=== PATIENT | female | born 1970 | race Caucasian/White ===

== ENCOUNTER 2025-02-05 10:05 | Outpatient (AMB) | payer OTHER, SELFPAY ==
[2025-02-05 10:11] VITALS: BMI 24.9
--- NOTE | 2025-02-05 10:11 | A.PHYSOV ---
Vital Signs 02/05/25 10:11 Height 5 ft 6 in Weight 154 lb BMI 24.9 Intake Visit Reasons: NPV Marita Ref- chronic rt shoulder & paresthesia Intake Note: Patient is a 54 year old female here for a new patient office visit. Patient has been referred for chronic right shoulder pain and paresthesia in right arm. Machine I Cutter Required: No Allergies Sulfa (Sulfonamide Antibiotics) Allergy (Unknown, Verified 02/05/25 10:12) Unknown HPI Comments Details: History of Present Illness The patient is a 54 year old individual presenting for evaluation of worsening right shoulder pain. 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 The symptoms have worsened since the summer and now include tingling that radiates down the entire right arm into the hand. The patient's job involves repetitive lifting of heavy items with the right arm and hand. There is no history of a specific traumatic injury; the condition is attributed to overuse. Pain can be severe with certain movements, causing spasms down the arm, and hand numbness is experienced at work and at night. Past medical history is significant for a frozen left shoulder, which felt different from the current symptoms and was treated with physical therapy. The patient also has ulcerative colitis, which contraindicates the use of NSAIDs like ibuprofen. The patient has tried Tylenol without relief and uses a cannabis cream for the pain. Patient reports pain level today of 7/10. I reviewed the referring provider's no prior to consultation. Pain Description - Location: The patient reports pain in the right shoulder. - Radiation: The pain is associated with tingling that radiates down the arm into the hand and pain that goes into the shoulder blade. - Quality: The sensation is described as tingling and can cause spasms. - Onset and Duration: Pain has been intermittent for years but has worsened since the summer. - Exacerbating Factors: Pain is worsened by certain shoulder or neck movements, work activities, and sitting. - Associated Symptoms: The patient reports numbness in the hand, difficulty with treatment counselor, increased clumsiness, and headaches. [facility] Social History (Updated 02/05/25 @ 10:14 by Taylor Mccloud MA) Alcohol intake: current Alcohol intake frequency: holidays/special occasions only Patient Tobacco Use Status: Never used Tobacco Review of Systems Narrative Review of Systems - Neurological: Reports tingling and numbness radiating from the right shoulder down to the hand. - Neurological: Reports headaches. - Neurological: Reports increased clumsiness lately. - Musculoskeletal: Reports arm spasms with certain movements. - Gastrointestinal: Reports a history of ulcerative colitis. - Musculoskeletal: Reports worsening right shoulder pain, present intermittently for years. Physical Exam Exam Exam: Physical Exam Cervical Spine: Examination of her cervical spine, there is no visible swelling or deformity. She is tender to the right upper trapezius. She is otherwise nontender. Full range of motion of the cervical spine with pain. Special Tests: Axial Compression test: Negative Spurlings test: Positive right Lhermitte's sign is Negative Upper Extremities: Full range of motion bilateral upper extremities. Negative impingement testing. Negative Tinel test. Equal treatment counselor strength bilaterally. Neuro: Sensation: Intact to upper extremities bilateral to light touch Strength C5 (Elbow Flexion): 5/5 on the left and 5/5 on the right. C6 (Elbow Ext): 5/5 on the left and 5/5 on the right. C7 (Elbow Ext): 5/5 on the left and 5/5 on the right. C8 (Finger Flex): 5/5 on the left and 5/5 on the right. T1 (Finger Abd/Add): 5/5 on the left and 5/5 on the right. DTR: C5 (Biceps): Left 2 Right 2 C6 (Brachioradialis): Left 2 Right 2 C7 (Triceps): Left 2 Right 2 Clark sign: Negative No pathologic clonus. No involuntary movement. . Vital Signs: BMI result Body Mass Index 24.9 Assessment & Plan Assessment & Plan (1) Cervical radiculopathy: Code(s): M54.12 - Radiculopathy, cervical region Category: Medical (2) Impingement of right shoulder: Code(s): M25.811 - Other specified joint disorders, right shoulder Category: Medical (3) Carpal tunnel syndrome, right: Code(s): G56.01 - Carpal tunnel syndrome, right upper limb Category: Medical Plan Pain Management - Analgesia: The patient has tried Tylenol without effect and uses a cannabis cream for pain. - Analgesia: Current pain can be severe with certain movements, causing spasms that go down the arm. - Analgesia: Prohibited medications include ibuprofen due to a history of ulcerative colitis. - Activities of Daily Living: The patient's work, which involves repetitive use of the right arm and hand, is impacted. - Activities of Daily Living: The patient reports difficulty gripping with the right hand. Plan Patient was informed and verbally consented to the use of an ambient scribe for clinic note documentation during this visit. 1. Cervicalgia With Radiculopathy The patient's symptoms of right arm pain, tingling, and numbness are more likely attributable to a cervical spine issue, such as a pinched nerve, rather than a primary shoulder pathology. This clinical suspicion is based on the physical exam finding that neck movements reproduce the radicular symptoms, whereas shoulder ROM is less provocative. A home exercise program for the neck will be initiated, focusing on gentle stretching and isometrics. Gabapentin 100 mg is prescribed, to be taken up to TID for neuropathic pain, with instructions to titrate as tolerated. The patient may continue Tylenol for analgesia. A follow-up is scheduled in 6 weeks to reassess and pursue an MRI of the neck, as insurance is likely to deny it without a trial of conservative therapy. Patient declined physical therapy therefore we have reviewed 5 different exercise that she will perform every other day upon follow-up if her symptoms are not markedly improved we will consider MRI of the cervical spine. 2. Right Shoulder Pain Although this is the patient's primary complaint, the physical exam is less indicative of a primary shoulder etiology. Previous X-rays showed only mild AC joint degenerative changes. Treatment will focus on the suspected cervical cause of the symptoms, and the shoulder will be re-evaluated at the 6-week follow-up appointment. 3. Ulcerative Colitis The patient's history of ulcerative colitis serves as a contraindication to the use of NSAIDs for pain management. The patient has been educated to avoid ibuprofen and similar medications. Discussion Notes I discussed with the patient that while the main complaint is right shoulder pain, my clinical suspicion is that the symptoms, particularly the tingling and numbness, are originating from a pinched nerve in the neck. I explained that this is supported by the physical exam, where neck movements reproduced the arm symptoms, while shoulder movement was less provocative. We reviewed the likely insurance requirement of a 4-6 week trial of conservative therapy before an MRI of the neck would be approved. The patient agreed to a treatment plan consisting of a home exercise program for the neck and a trial of gabapentin for nerve pain. I prescribed gabapentin 100 mg TID and advised on potential drowsiness. I provided a handout with neck exercises and instructed the patient to monitor how neck positioning affects the arm symptoms to help confirm the diagnosis. We will follow up in five weeks to reassess and will collaboratively decide on ordering an MRI for either the neck or shoulder at that time. Patient Instructions - Begin a home exercise program for your neck, focusing on gentle stretches forward, backward, and [id number]. - Avoid rotating or twisting your neck, as this may worsen your symptoms. - Take gabapentin 100 mg up to three times a day for your nerve pain. You can increase the dose if needed, but be aware that this medication can make you sleepy. - You may continue to take Tylenol (1 gram every 8 hours) for pain. - Do not take medications like ibuprofen due to your history of ulcerative colitis. - Pay attention to whether certain neck movements or positions make your arm symptoms better or worse, and be prepared to discuss this at your next visit. - Please make a follow-up appointment at the front office manager for five weeks from now. Medications: New gabapentin 100 mg PO TID 90 caps 0RF 30 days M54.12 - Radiculopathy, cervical region Coding Level of Care Code Tele New Pt Level 4 (14704) Diagnoses Cervical radiculopathy M54.12 Impingement of right shoulder M25.811 Carpal tunnel syndrome, right G56.01
--- OUTSIDE RECORDS SUMMARY | 2025-02-05 11:24 | XMS_ITS | Encounter Summary ---
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 2-4 times a month 05/30/2020 How many drinks containing a lcohol do you have on a typical day when you are drinking? Not asked How often do you have six or more drinks on one occasion? Not asked Sex Assigned at Date Recorded Female 09/03/2021 3:43 PM E [employer] Job Start Date Occupation Industry Not on file Not on file Not on file documented as of this encounter Plan of Treatment Not on file documented as of this encounter Visit Diagnoses Not on filedocumented in this encounter Care Teams Lather Apprentice Relationship Specialty Start Date End Date Eddi Arias MD PCP - General Internal Medicine 02/22/14 09/10/21 Aziza Preito MD [address] [place] [id number] PCP - General Internal Medicine 09/11/21 03/30/22 Ronnie Jose [address] [place] [phone] PCP - General Internal Medicine 03/31/22 07/12/22 Aziza Prieto MD [address] [place] [phone] PCP - General Internal Medicine 07/13/22 Meka Yañez MD Specialist Cardiology 04/22/20 Billy Hutson PA Specialist Cardiology 04/22/20 documented as of this encounter
--- OUTSIDE RECORDS SUMMARY | 2025-02-05 11:24 | XMS_ITS | Clinical Summary ---
Author Organization [address] [place] [address] Address [address] [place] [address] Phone Care Team Providers Care Coil Finisher Name Role Phone Aziza Garber MD Primary Care Prov ider Allergies Active Allergy Reactions Criticality Noted Date Comments Sulfa (Sulfonamide Antibiotics) Rash 06/2009 Medications glucosamine-chond roit-vit C-Mn 500-400 mg capsule Take by mouth 2 times daily. Active MULTIVITAMIN ORAL 1 tab daily Active Lactobacillus acidophilus (PROBIOTIC ORAL) Take 1 capsule by mouth 1 (one) time each day. Active mesalamine (DELZICOL) 400 mg capsule (with del rel tablets) DR capsuleIndication s:Other ulcerative colitis without complication ([facility]/HCC V24, [facility]/HCC V28) Take four (4) capsules two times per day. 720 capsule 3 5 04/23/19 26 Active pantoprazole (PROTONIX) 40 mg EC tabletIndications :Gastroesophageal reflux disease, unspecified whether esophagitis present Take 1 tablet (40 mg total) by mouth 1 (one) time each day. Do not crush, chew, or split. 90 each 3 5 08/18/19 26 Active metoprolol succinate (TOPROL-XL) 25 mg 24 hr tablet TAKE ONE-HALF TABLET BY MOUTH DAILY 45 tablet 1 5 Active lisinopriL (PRINIVIL,ZESTRIL ) 5 mg tablet TAKE 1 TABLET BY MOUTH DAILY 90 tablet 3 5 Active Active Problems Problem Noted Date Diagnosed Date Pure hypercholesterolemia 12/05/2023 Degenerative tear of acetabular labrum of right hip 01/18/2023 Osteoarthritis resulting from right hip dysplasi a 01/18/2023 Cardiomyopathy ([facility] V24, [facility] V28) 2022 Overview (12/05/2023): -Diagnosed around 2015 during a particularly severe sinusitis episode -Had an exercise stress test on 08/13/2015-exercised for 9 minutes to 88% of max predicted heart rate without ischemic ECG changes stopping for shortness of breath -Has had subsequent echocardiograms on medical therapy with ROMERO inhibitor and beta-kim since then which have shown essentially stable ejection fractions ranging from 45 to 55% -Most recent echocardiogram on 11/10/2018 showing normal left ventricular size and wall thickness with mild, global hypokinesis and an ejection fraction of 45 to 50%, normal RV size and systolic function, no hemodynamically significant valve disease -Has never really had heart failure symptoms Last Assessment & Plan: Unclear etiology-may have been viral; no family history of heart failure, no history of remote chemotherapy agent use, no history of immune modulating agent use; either way, she is asymptomatic and looks completely euvolemic on exam, continue current lisinopril and metoprolol, will plan to repeat an echocardiogram in a couple of years as a surveillance Nephrolithiasis 01/02/2018 Renal cyst, left 01/02/2018 Dyspepsia 07/25/2010 Ovarian cyst rupture 07/25/2010 Allergic rhinitis 03/11/2009 Chronic knee pain 03/11/2009 Endometriosis 03/11/2009 GERD (gastroesophageal reflux disease) 0 Assessment & Plan (04/16/2024 4:08 PM EST): Controlled with pantoprazole 20mg daily. Continue as directed. Orders: pantoprazole (PROTONIX) 20 mg EC tablet; Take 1 tablet (20 mg total) by mouth 1 (one) time each day. Do not crush, chew, or split. Low back pain 03/11/2009 Ulcerative colitis ([facility] V24, [facility] V28) Overview (12/05/2023): Presently well-controlled followed regularly by transfer driver Assessment & Plan (04/16/2024 4:08 PM EST): Quiescent with mesalamine. Continue as directed, Four 400mg tablets BID Prescription sent for 90-day supply. Ordering routine labwork for monitoring. Orders: mesalamine (DELZICOL) 400 mg capsule (with del rel tablets) DR capsule; Take four (4) capsules two times per day. CBC and differential; Future Comprehensive metabolic panel; Future C-reactive protein; Future Vitamin D 1,25 dihydroxy; Future Encounters Date Type Department Care Team Description 01/04/2025 Results Follow-Up Adult Medicine [address] [phone] Aziza Badillo MD 01/03/2025 2:35 PM EDT - 01/03/2025 11:59 PM EDT Hospital Encounter [address] [phone] Paresthesia of right arm; Chronic right shoulder pain Discharge Disposition: Home or Self Care 01/03/2025 2:35 PM EDT - 01/03/2025 11:59 PM EDT Hospital Encounter [address] [phone] Paresthesia of right arm; Chronic right shoulder pain Discharge Disposition: Home or Self Care 01/03/2025 1:15 PM EDT Office Visit [facility] [address] [phone] Aziza Badillo MD Paresthesia of right arm (Primary Dx); Chronic right shoulder pain; Need for prophylactic vaccination and inoculation against influenza; Screening for depression; Encounter for screening involving social determinants of health (SDoH) 11/09/2024 7:13 AM EDT - 11/09/2024 11:59 PM EDT [facility] [address] [phone] Abnormal mammogram of right breast Discharge Disposition: Home or Self Care from Last 3 Months Immunizations Immunization Administration Dates Next Due H1N1 Inj Preservative Free 03/10/2009 Influenza Quadravalent, MDCK , 0.5ml, preservative free (Flucelvax) 6mo and older 12/28/2020,12/23/2018 Influenza trivalent, MDCK, 0 .5mL, preservative free (Flucelvax) 6mo and older 01/03/2025 Influenza trivalent, with preservative (Fluzone; Afluria) 6mo and older 10/09/2018,12/19/2016,12/06/2015,2011,03/10/2009 Influenza, Unspecified 12/06/2015,12/12/2014 Moderna SARS-CoV-2 COVID-19, mRNA, LNP-S, preservative free 03/02/2021,07/26/2020,06/28/2020 PPD Test 02/09/2012 Td Tetanus diptheria (Tdvax) 7yo and older 06/06/2019 Tdap Tetanus diptheria acell ular pertussis (Boostrix; Adacel) 7yo and older 03/10/2009 Zoster recombinant (Shingrix ) 19yo and older 12/28/2020 Surgical History Surgery Date Site/Laterality Comments TONSILLECTOMY PROCEDURE: HISTORICAL TONSILLECTOMY OTHER SURGICAL HISTORY PROCEDURE: ---- OTHER ----; COMMENT: Laparoscopic surgery for endometriosis COLONOSCOPY 01/13/2023 rectal biopsy positive for chronic colitis/proctitis, inactive. Recall 2 years OTHER SURGICAL HISTORY PROCEDURE: ---- OTHER ----; COMMENT: deviated septum BREAST BIOPSY 2012 Left PROCEDURE: BX BREAST; PERC NEEDLE CORE W/IMAG GUID; COMMENT: lt bx neg COLONOSCOPY 06/25/2020 ESOPHAGOGASTRODUODENOSCOPY 06/25/2020 Medical History Medical History Date Comments Ulcerative colitis (CMS/HCC V24, CMS/HCC V28) DX:Ulcerative colitis (HCC); COMMENT: Dr. Garcia/ ugi, colonoscopy 2009 Ovarian cyst rupture DX:Ovarian cyst rupture Abnormal echocardiogram 06/05/2015 DX:Abnor mal echocardiogram Family History Medical History Relation Name Comments Hypertension Brother half brother Diabetes Father Heart attack Father Hypertension Father Other: ulcerative colitis Father Depression Mother Hypertension Mother Thyroid disease Mother Thyroid disease Sister 1 Breast cancer Neg Hx Relation Name Status Comments Brother Alive Father Alive Diabetes, hyper tension, coronary artery disease, ulcer of colitis Mother Alive Depression, hyp othyroid, anxiety Sister 1 Sister 2 Alive hashimotas, Sister 3 Alive Sister 4 Alive Social History Tobacco Use Types Packs/Day Years Used Date Smoking Tobacco: Never Smokeless Tobacco: Never Tobacco Cessation:Counseling Given: Not Answered Alcohol Use Standard Drinks/Week Comments Yes 0 (1 standard drink = 0.6 oz pur e alcohol) rare Housing Instability Answer Date Recorde d Are you worried that in the next 2 months you may not have stable housing? No 01/02/2025 Food Access & Nutrition Answer Date Rec orded Do you have access to a vari ety of food including fruits and vegetables? Yes 01/02/2025 Access to Healthcare Answer Date Record ed Within the last 3 months, ho w many times did you visit the emergency department for your medical care? 0 01/02/2025 Health Literacy Answer Date Recorded How often do you need to hav e someone help you when you read instructions, pamphlets, or other written material from your doctor or pharmacy? Never 01/02/2025 Caregiver: How often do you need to have someone help you when you read instructions, pamphlets, or other written material from your doctor or pharmacy? Not on file 01/02/2025 Financial Risk Answer Date Recorded How hard is it for you to pa y for the very basics like food, housing, medical care, and air conditioning / heating? Not very hard 01/02/2025 Transportation Answer Date Recorded Has the lack of transportati on kept you from meetings, work, or from getting things needed for daily living? No Has the lack of transportati on kept you from medical appointments or from getting medications? No 01/02/2025 Social Isolation Answer Date Recorded How often do you feel lonely or isolated from th ose around you? Rarely 01/02/2025 Food Risk Answer Date Recorded Within the past 12 months we worried whether our food would run out before we got money to buy more. Never true 01/02/2025 Within the past 12 months th e food we bought just didn't last and we didn't have money to get more. Never true 01/02/2025 Dependent Care Answer Date Recorded Do you need help finding or paying for care for your loved ones. For example, child adolescent care or elderly care for an older adult? No 01/02/2025 Education Answer Date Recorded Do you think completing more education or training, like finishing a GED, going to college, or learning a trade, would be helpful for you? No 01/02/2025 Employment and Income Answer Date Recor ded During the last four weeks, have you been actively looking for work? No 01/02/2025 Living Situation Answer Date Recorded What is your living situation? Unrecognized valu e 01/02/2025 Comments No Sex and Gender Information Value Date Recorded Sex Assigned at Not on file Legal Sex Female 5:59 PM EST Gender Identity Not on file Sexual Orientation Not on file Obstetrics History Last Filed Vital Signs Vital Sign Reading Time Taken Comments Blood Pressure 117/69 01/03/2025 2:09 PM EDT Pulse 78 01/03/2025 2:09 PM EDT Temperature 36.2 C (97.2 F) 01/03/2025 2:09 PM EDT Respiratory Rate 14 01/03/2025 2:09 PM EDT Oxygen Saturation 97% 01/03/2025 2:09 PM EDT Inhaled Oxygen Concentration - - Weight 70.2 kg (154 lb 12.8 oz) 01/03/2025 2:09 PM EDT Height 165.1 cm (5' 5 ) 01/03/2025 2:09 PM EDT Body Mass Index 25.76 01/03/2025 2:09 PM EDT Plan of Treatment Upcoming Encounters Date Type Department Care Team (Late st Contact Info) Description 03/13/2025 1:40 PM EST Office Visit [facility] [address] [facility] [address] [place] [address] Lashanda Barber NP [address] [place] [address] [address] [place] [address] 05/03/2025 7:30 AM EST Office Visit Adult Medicine [address] [phone] Aziza Garber MD [address] [place] [address] Health Maintenance Due Date Last Done Comments Hepatitis B Vaccines (1 of 3 - 19+ 3-dose series) 1989 Pneumococcal Vaccine: 50+ Years (1 of 1 - PCV) 2020 Zoster Vaccines (2 of 2) 02/22/2021 12/28/2020 HIV Screening 02/13/2022 Cervical Cancer Screening: Pap Smear 08/12/2022 08/13/2019 COVID-19 Vaccine ( season) 2024 03/02/2021, 02/04/2021, 07/26/2020, Additional history exists Social Influencers of Health Screening 01/02/2026 01/02/2025 Breast Cancer Screening 11/09/2026 11/10/19, 10/24/2024, 06/16/2023, Additional history exists Cholesterol Screening (Lipid Panel) 04/26/2027 04/26/2022 DTaP,Tdap,and Td Vaccines (3 - Td or Tdap) 06/05/2029 06/06/2019, 03/10/2009 Colorectal Cancer Screening: Colonoscopy 04/17/2034 04/17/2024, 01/13/2023 RSV Immunization Adult Patients (1 - 1-dose 75+ series) 2045 Hepatitis C Screening Completed 03/31/2022 Depression Screening Completed 01/03/2025 Influenza Vaccine Completed 01/03/2025, , 12/23/2018, Additional history exists HIB Vaccines Aged Out No longer eligi ble based on patient's age to complete this topic HPV Vaccines Aged Out No longer eligi ble based on patient's age to complete this topic Hepatitis A Vaccines Aged Out No long er eligible based on patient's age to complete this topic IPV Vaccines Aged Out No longer eligi ble based on patient's age to complete this topic MMR Vaccines Aged Out No longer eligi ble based on patient's age to complete this topic Meningococcal ACWY Vaccine Aged Out N o longer eligible based on patient's age to complete this topic Meningococcal B Vaccine Aged Out No l onger eligible based on patient's age to complete this topic RSV Immunization Patients Under 20 months Aged Out No longer eligible based on patient's age to complete this topic Varicella Vaccines Aged Out No longer eligible based on patient's age to complete this topic Procedures Procedure Name Priority Date/Time Associated Diagnosis Comments XR CERVICAL SPINE 4-5 VIEWS Routine 01/03/2025 2:49 PM EDT Paresthesia of right arm Chronic right shoulder pain XR SHOULDER 2+ VIEWS RIGHT Routine 01/03/2025 2:49 PM EDT Paresthesia of right arm Chronic right shoulder pain MG MAMMO DIGITAL DIAGNOSTIC W JIMENEZ RIGHT Routine 11/09/2024 7:49 AM EDT Abnormal mammogram of right breast COLONOSCOPY Routine 04/17/2024 8:20 AM EST LIPID PANEL Routine 04/26/2022 HM HEPATITIS C SCREENING Routine 03/31/2022 HM PAP SMEAR Routine 08/13/2019 from Last 3 Months or Most Recently Relevant to Health Maintenance Results * XR Cervical Spine 4-5 Views (01/03/2025 2:49 PM EDT) Anatomical Region Laterality Modality Spine, C-spine Radiographic Daphne ging 01/04/2025 10:2 8 AM EDT Impressions 01/04/2025 10:32 AM EDT Spondylosis and neural foraminal narrowing as described, not significantly changed. -------- FINAL REPORT -------- Dictated By: Miesha Evans Dictated Date: 01/04/2025 10:28 ET Assigned Physician: Miesha Evans Reviewed and Electronically Signed By: Miesha Evans Signed Date: 01/04/2025 10:32 ET Workstation ID: [id number] Transcribed By: Self Edit Transcribed Date: 01/04/2025 10:28 ET Narrative 01/04/2025 10:32 AM EDT CERVICAL SPINE, 4 VIEWS HISTORY: Arm paresthesias. Prior: Cervical spine 08/06/2019. FINDINGS: There is normal alignment of the cervical spine. No fracture or dislocation is seen. The paravertebral soft tissues are unremarkable. Minor endplate spurring at multiple levels as unchanged. There is right neural foraminal narrowing at C5-6 and C6-7. There is left neural foraminal narrowing at C3-4, C4-5, C5-6, and C6-7. There is facet hypertrophy Procedure Note Miesha Evans MD - 01/04/2025 CERVICAL SPINE, 4 VIEWS HISTORY: Arm paresthesias. Prior: Cervical spine 08/06/2019. FINDINGS: There is normal alignment of the cervical spine. No fracture ordislocation is seen. The paravertebral soft tissues are unremarkable. Minor endplate spurring at multiple levels as unchanged. There is right neural foraminal narrowing at C5-6 and C6-7. There is left neural foraminal narrowing at C3-4, C4-5, C5-6, and C6-7. There is facet hypertrophy IMPRESSION: Spondylosis and neural foraminal narrowing as described, not significantlychanged. -------- FINAL REPORT -------- Dictated By: Miesha Evans Dictated Date: 01/04/2025 10:28 ET Assigned Physician: Miesha Evans Reviewed and Electronically Signed By: Miesha Evans Signed Date: 01/04/2025 10:32 ET Workstation ID: [id number] Transcribed By: Self Edit Transcribed Date: 01/04/2025 10:28 ET Aziza Garber MD IMG XR PROCEDURES Final Result * XR Shoulder 2+ Views Right (01/03/2025 2:49 PM EDT) Anatomical Region Laterality Modality Upper Extremities, Shoulder Right Radi ographic Imaging 01/04/2025 12:0 4 PM EDT Impressions 01/04/2025 12:05 PM EDT Mild degenerative changes. -------- FINAL REPORT -------- Dictated By: Miesha Evans Dictated Date: 01/04/2025 12:04 ET Assigned Physician: Miesha Evans Reviewed and Electronically Signed By: Miesha Evans Signed Date: 01/04/2025 12:05 ET Workstation ID: [id number] Transcribed By: Self Edit Transcribed Date: 01/04/2025 12:04 ET Narrative 01/04/2025 12:05 PM EDT RIGHT SHOULDER, 4 VIEWS HISTORY: Shoulder pain. PRIORS: None. FINDINGS: There is mild degenerative spurring of the right acromioclavicular joint and right glenohumeral joint. No fracture, malalignment, or foreign body is seen. No soft tissue abnormality is seen. Procedure Note Miesha Evans MD - 01/04/2025 RIGHT SHOULDER, 4 VIEWS HISTORY: Shoulder pain. PRIORS: None. FINDINGS: There is mild degenerative spurring of the rightacromioclavicular joint and right glenohumeral joint. No fracture, malalignment, or foreign body is seen. No soft tissueabnormality is seen. IMPRESSION: Mild degenerative changes. -------- FINAL REPORT -------- Dictated By: Miesha Evans Dictated Date: 01/04/2025 12:04 ET Assigned Physician: Miesha Evans Reviewed and Electronically Signed By: Miesha Evans Signed Date: 01/04/2025 12:05 ET Workstation ID: [id number] Transcribed By: Self Edit Transcribed Date: 01/04/2025 12:04 ET Aziza Garber MD IMG XR PROCEDURES Final Result * MG Mammo Digital Diagnostic w Jimenez Right (11/09/2024 7:49 AM EDT) Anatomical Region Laterality Modality Breast Right Mammography 11/09/2024 7:42 AM EDT Impressions 11/09/2024 7:48 AM EDT Benign. BI-RADS CATEGORY: 1 - NEGATIVE RECOMMENDATION: Screening bilateral mammogram is recommended in 1 year. Mammo Location: [facility], [address] [place] [address] -------- FINAL REPORT -------- Dictated By: Vishal Espana Dictated Date: 11/09/2024 07:42 ET Assigned Physician: Vishal Espana Reviewed and Electronically Signed By: Vishal Espana Signed Date: 11/09/2024 07:48 ET Workstation ID: [id number] Transcribed By: Self Edit Transcribed Date: 11/09/2024 07:42 ET Narrative 11/09/2024 7:48 AM EDT CLINICAL: The patient is a 54 years Female. Screening mammography performed 10/24/2024 demonstrated a possible area of architectural distortion superiorly in the right breast, 8 cm from the nipple, seen on MLO projection only. The patient now presents for imaging. COMPARISON: Most recently 10/24/2024 and most remotely 03/17/2017. TECHNIQUE: Digital mammography of the right breast in spot compression MLO tomosynthesis and full field true lateral tomosynthesis projections is performed in the [employer] 2000-D unit. Computer aided detection utilizing the iCAD system was utilized. FINDINGS: The right breast is again seen to be composed of a combination of fatty and moderately dense fibroglandular elements. The study demonstrates complete effacement of the asymmetry of concern with compression and with change in position. No mass or architectural distortion is now seen. The appearance is now quite similar to that demonstrated on prior studies. TISSUE DENSITY: There are scattered areas of fibroglandular density. (BI-RADS category B) Procedure Note Vishal Espana MD - 11/09/2024 CLINICAL: The patient is a 54 years Female. Screening mammographyperformed 10/24/2024 demonstrated a possible area of architecturaldistortion superiorly in the right breast, 8 cm from the nipple, seen onMLO projection only. The patient now presents for imaging. COMPARISON: Most recently 10/24/2024 and most remotely 03/17/2017. TECHNIQUE: Digital mammography of the right breast in spot compression MLOtomosynthesis and full field true lateral tomosynthesis projections isperformed in the [employer] 2000-D unit. Computer aided detectionutilizing the iCAD system was utilized. FINDINGS: The right breast is again seen to be composed of a combinationof fatty and moderately dense fibroglandular elements. The studydemonstrates complete effacement of the asymmetry of concern withcompression and with change in position. No mass or architecturaldistortion is now seen. The appearance is now quite similar to thatdemonstrated on prior studies. TISSUE DENSITY: There are scattered areas of fibroglandular density.(BI-RADS category B) IMPRESSION: Benign. BI-RADS CATEGORY: 1 - NEGATIVE RECOMMENDATION: Screening bilateral mammogram is recommended in 1 year. Mammo Location: [facility], [address] [place] [id number] -------- FINAL REPORT -------- Dictated By: Vishal Espana Dictated Date: 11/09/2024 07:42 ET Assigned Physician: Vishal Espana Reviewed and Electronically Signed By: Vishal Espana Signed Date: 11/09/2024 07:48 ET Workstation ID: [id number] Transcribed By: Self Edit Transcribed Date: 11/09/2024 07:42 ET Aziza Garber MD IMG BI PROCEDURES Final Result * COLONOSCOPY (04/17/2024 8:20 AM EST) Anatomical Region Laterality Modality Endoscopy Result [facility] Historical Provider GI~PROCEDURE ORDERABLES F inal Result * (ABNORMAL) Lipid panel (04/26/2022) [facility] LDL/HDL Ratio 3 0 - 4 Triglycerides 87 0 - 150 mg/dL Cholesterol 200 0 - 200 mg/dL HDL 66 >=40 mg/dL LDL Cholesterol 117(A) 0 - 100 mg/dL Blood Venous blood specimen / Unknown Result [facility] Historical Provider LAB BLOOD ORDERABLES Gabby l Result * Hepatitis C Screening (03/31/2022) Pathologist [facility] Hepatitis C Screening abstracted Historical Provider HEALTH MAINTENANCE Final Result * Pap Smear (08/13/2019) Pathologist [facility] Pap smear abstracted, no interpretation Historical Provider HEALTH MAINTENANCE Final Result from Last 3 Months or Most Recently Relevant to Health Maintenance Insurance [facility] Care Teams Coil Finisher Relationship Specialty Start Date End Date Aziza Garber MD [address] [place] [phone] PCP - General Internal Medicine 03/26/24
--- OUTSIDE RECORDS SUMMARY | 2025-02-05 11:24 | XMS_ITS | Encounter Summary ---
Author Organization [facility] Address [address] [place] [address] Care Team Providers Care Potato Sorter Name Role Phone Aziza Garber MD Primary Care Prov ider Reason for Referral * Consultation (Routine) - Closed Specialty Diagnoses / Procedures Referred By Contact Referred To Contact Physical Medicine and Rehabilitation Diagnoses Chronic right shoulder pain Paresthesia of right arm Aziza Garber MD [address] [place] [address] Phone: tel: fax: Hollis Khan DO [address] [address] Phone: tel:[phone] fax:[phone] Referral ID Status Reason Start Date Expiration Date V isits Requested Visits Authorized [id number] Closed Specialty Services Required 01/04/2025 01/04/2026 1 1 Encounter Details Date Type Department Care Team (Late st Contact Info) Description 01/04/2025 Results Follow-Up Adult Medicine [address] [phone] Aziza Garber MD [address] [place] [address] Social History Tobacco Use Types Packs/Day Years [...] care for your loved ones. For example, children's attendant or elderly care for an older adult? [...] on file Sexual Orientation Not on file documented as of this encounter Plan of Treatment Upcoming Encounters Date Type Department Care Team (Late st Contact Info) Description 03/13/2025 1:40 PM EST Office Visit [facility] - [facility] [address] [facility] [address] [place] [address] Lashanda Barber NP [address] [place] [address] [place] [address] 05/03/2025 7:30 AM EST Office Visit Adult Medicine [address] [phone] Aziza Garber MD [address] [place] [address] Scheduled Referrals Name Type Priority Associated Diagnoses Order Schedule Ambulatory referral to Physical Medicine Rehab Outpatient Referral Routine Chronic right shoulder pain Paresthesia of right arm 1 Occurrences starting 01/04/2025 until 01/04/2026 documented as of this encounter Visit Diagnoses Diagnosis Chronic right shoulder pain- Primary Pain in joint, shoulder region Paresthesia of right arm Disturbance of skin sensation documented in this encounter Additional Health Concerns Assessment Noted Time PHQ-9 Depression Total Score: 0 01/04/20 2:11 PM EDT documented as of this encounter Care Teams Potato Sorter Relationship Specialty Start Date End Date Aziza Garber MD [address] [place] [address] PCP - General Internal Medicine 03/26/24 documented as of this encounter
--- OUTSIDE RECORDS SUMMARY | 2025-02-05 11:24 | XMS_ITS | Encounter Summary ---
Author Organization [facility] Address [address] [place] [address] Care Team Providers Care Linseed Oil Boiler Name Role Phone Eddi Arias MD Primary Care Provider Meka Naranjo MD Unavailable [phone] Billy Hutson Unavailable Aziza Prieto MD Primary Care Prov ider Ronnie Jose Primary Care Provider [phone] Aziza Prieto MD Primary Care Prov ider Encounter Details Date Type Department Care Team Description 06/08/2017 Internal Grinding Machine Operator Report Medical Records [address] [place] [address] Venancio Garcia MD Social History Tobacco Use Types Packs/Day Years [...] on filedocumented in this encounter Care Teams Linseed Oil Boiler Relationship Specialty Start Date End Date Eddi Arias MD PCP - General Internal Medicine 02/22/14 09/10/21 Aziza Prieto MD [address] [place] [address] PCP - General Internal Medicine 09/11/21 03/30/22 Ronnie Jose [address] [place] [address] PCP - General Internal Medicine 03/31/22 07/12/22 Aziza Prieto MD [address] [place] [address] PCP - General Internal Medicine 07/13/22 Meka Yañez MD Specialist Cardiology 04/22/20 Billy Hutson PA Specialist Cardiology 04/22/20 documented as of this encounter
--- OUTSIDE RECORDS SUMMARY | 2025-02-05 11:24 | XMS_ITS | Encounter Summary ---
Author Organization [facility] Address [address] [place] [address] Care Team Providers Care Stacker Driver Name Role Phone Eddi Arias MD Primary Care Provider Meka Naranjo MD Unavailable [phone] Billy Hutson Unavailable Aziza Prieto MD Primary Care Prov ider Ronnie Jose Primary Care Provider [phone] Aziza Prieto MD Primary Care Prov ider Encounter Details Date Type Department Care Team Description 11/05/2015 Hospital Medical Records [address] [place] [address] Anuj Ford MD Social History Tobacco Use Types Packs/Day [...] on filedocumented in this encounter Care Teams Stacker Driver Relationship Specialty Start Date End Date Eddi Arias MD PCP - General Internal Medicine 02/22/14 09/10/21 Aziza Prieto MD [address] [place] [address] PCP - General Internal Medicine 09/11/21 03/30/22 Ronnie Jose [address] [place] [address] PCP - General Internal Medicine 03/31/22 07/12/22 Aziza Prieto MD [address] [place] [address] PCP - General Internal Medicine 07/13/22 Meka Yañez MD Specialist Cardiology 04/22/20 Billy Hutson PA Specialist Cardiology 04/22/20 documented as of this encounter
--- OUTSIDE RECORDS SUMMARY | 2025-02-05 11:24 | XMS_ITS | Encounter Summary ---
Author Organization [facility] Address [address] [place] [address] Care Team Providers Care Broom Maker Name Role Phone Eddi Arias MD Primary Care Provider Meka Naranjo MD Unavailable [phone] Billy Hutson Unavailable Aziza Prieto MD Primary Care Prov ider Ronnie Jose Primary Care Provider [phone] Aziza Prieto MD Primary Care Prov ider Encounter Details Date Type Department Care Team Description 07/30/2014 Certified Dialysis Technician Report Medical Records [address] [place] [address] Venancio Garcia MD Social History Tobacco Use [...] on filedocumented in this encounter Care Teams Broom Maker Relationship Specialty Start Date End Date Eddi Arias MD PCP - General Internal Medicine 02/22/14 09/10/21 Aziza Prieto MD [address] [place] [address] PCP - General Internal Medicine 09/11/21 03/30/22 Ronnie Jose [address] [place] [address] PCP - General Internal Medicine 03/31/22 07/12/22 Aziza Prieto MD [address] [place] [address] PCP - General Internal Medicine 07/13/22 Meka Yañez MD Specialist Cardiology 04/22/20 Billy Hutson PA Specialist Cardiology 04/22/20 documented as of this encounter
--- OUTSIDE RECORDS SUMMARY | 2025-02-05 11:24 | XMS_ITS | Encounter Summary ---
Author Organization [facility] Address [address] [place] [address] Care Team Providers Care Chief Operator Lock Tender Name Role Phone Eddi Arias MD Primary Care Provider Meka Naranjo MD Unavailable [phone] Billy Hutson Unavailable Aziza Prieto MD Primary Care Prov ider Ronnie Jose Primary Care Provider [phone] Aziza Prieto MD Primary Care Prov ider Encounter Details Date Type Department Care Team Description 05/28/2020 Door Worker Report Medical Records [address] [place] [address] Avani Ortiz PA-C Social History Tobacco Use [...] on filedocumented in this encounter Care Teams Chief Operator Lock Tender Relationship Specialty Start Date End Date Eddi Arias MD PCP - General Internal Medicine 02/22/14 09/10/21 Aziza Prieto MD [address] [place] [address] PCP - General Internal Medicine 09/11/21 03/30/22 Ronnie Jose [address] [place] [address] PCP - General Internal Medicine 03/31/22 07/12/22 Aziza Prieto MD [address] [place] [address] PCP - General Internal Medicine 07/13/22 Meka Yañez MD Specialist Cardiology 04/22/20 Billy Hutson PA Specialist Cardiology 04/22/20 documented as of this encounter
--- OUTSIDE RECORDS SUMMARY | 2025-02-05 11:24 | XMS_ITS | Encounter Summary ---
Author Organization [facility] Address [address] [place] [address] Care Team Providers Care Ingot Weigher Name Role Phone Eddi Arias MD Primary Care Provider Meka Naranjo MD Unavailable Billy Hutson Unavailable Aziza Prieto MD Primary Care Prov ider Ronnie Jose Primary Care Provider [phone] Aziza Prieto MD Primary Care Prov ider Encounter Details Date Type Department Care Team Description 10/09/2018 Data Services Developer Report Medical Records [address] [place] [address] Billy Hutson PA [address] [place], [place] [id number] Social History Tobacco Use Types Packs/Day Years [...] on filedocumented in this encounter Care Teams Ingot Weigher Relationship Specialty Start Date End Date Eddi Arias MD PCP - General Internal Medicine 02/22/14 09/10/21 Aziza Prieto MD [address] [place] [address] PCP - General Internal Medicine 09/11/21 03/30/22 Ronnie Jose [address] [place] [address] PCP - General Internal Medicine 03/31/22 07/12/22 Aziza Prieto MD [address] [place] [address] PCP - General Internal Medicine 07/13/22 Meka Yañez MD Specialist Cardiology 04/22/20 Billy Hutson PA Specialist Cardiology 04/22/20 documented as of this encounter
--- OUTSIDE RECORDS SUMMARY | 2025-02-05 11:24 | XMS_ITS | Encounter Summary ---
Author Organization [facility] Address [address] [place] [address] Care Team Providers Care Fiber Technologist Name Role Phone Keith Zamora MD Primary Care Provider Eddi Hartman MD Primary Care Provider Meka Naranjo MD Unavailable [phone] Billy Hutson Unavailable Aziza Prieto MD Primary Care Prov ider Ronnie Jose Primary Care Provider [phone] Aziza Prieto MD Primary Care Prov ider Encounter Details Date Type Department Care Team Description 03/08/2012 Electrical Manufacturing Engineer Report Medical Records [address] [place] [address] Venancio Garcia MD Social History Tobacco Use [...] on filedocumented in this encounter Care Teams Fiber Technologist Relationship Specialty Start Date End Date Keith Zamora MD PCP - General 02/05/09 02/21/14 Eddi Arias MD PCP - General Internal Medicine 02/22/14 09/10/21 Aziza Prieto MD [address] [place] [address] PCP - General Internal Medicine 09/11/21 03/30/22 Ronnie Jose [address] [place] [address] PCP - General Internal Medicine 03/31/22 07/12/22 Aziza Prieto MD [address] [place] [address] PCP - General Internal Medicine 07/13/22 Meka Yañez MD Specialist Cardiology 04/22/20 Billy Hutson PA Specialist Cardiology 04/22/20 documented as of this encounter
--- OUTSIDE RECORDS SUMMARY | 2025-02-05 11:24 | XMS_ITS | Encounter Summary ---
Author Organization [facility] Address [address] [place] [address] Care Team Providers Care Goodwill Representative Name Role Phone Eddi Arias MD Primary Care Provider Meka Naranjo MD Unavailable Billy Hutson Unavailable Aziza Prieto MD Primary Care Prov ider Ronnie Jose Primary Care Provider Aziza Prieto MD Primary Care Prov ider Encounter Details Date Type Department Care Team Description 05/09/2016 Release of Information Medical Records [address] [place] [id number] Abstract, Provider Social History Tobacco Use Types Packs/Day Years [...] on filedocumented in this encounter Care Teams Goodwill Representative Relationship Specialty Start Date End Date Eddi Arias MD PCP - General Internal Medicine 02/22/14 09/10/21 Aziza Prieto MD [address] [place] [address] PCP - General Internal Medicine 09/11/21 03/30/22 Ronnie Jose [address] [place] [address] PCP - General Internal Medicine 03/31/22 07/12/22 Aziza Prieto MD [address] [place] [address] PCP - General Internal Medicine 07/13/22 Meka Yañez MD Specialist Cardiology 04/22/20 Billy Hutson PA Specialist Cardiology 04/22/20 documented as of this encounter
--- OUTSIDE RECORDS SUMMARY | 2025-02-05 11:24 | XMS_ITS | Encounter Summary ---
Author Organization [facility] Address [address] [place] [address] Care Team Providers Care Multiplex Operator Name Role Phone Keith Zamora MD Primary Care Provider Eddi Hartman MD Primary Care Provider Meka Naranjo MD Unavailable [phone] Billy Hutson Unavailable Aziza Prieto MD Primary Care Prov ider Ronnie Jose Primary Care Provider [phone] Aziza Prieto MD Primary Care Prov ider Encounter Details Date Type Department Care Team Description 05/17/2011 Educational Administrator Report Medical Records [address] [place] [address] Hollis Mccormack Social History Tobacco Use Types Packs/Day Years Used Date Smoking Tobacco: Never Alcohol Use Standard Drinks/Week Comments [...] on filedocumented in this encounter Care Teams Multiplex Operator Relationship Specialty Start Date End Date Keith Zamora MD PCP - General 02/05/09 02/21/14 Eddi Arias MD PCP - General Internal Medicine 02/22/14 09/10/21 Aziza Prieto MD [address] [place] [address] PCP - General Internal Medicine 09/11/21 03/30/22 Ronnie Jose [address] [place] [address] PCP - General Internal Medicine 03/31/22 07/12/22 Aziza Prieto MD [address] [place] [address] PCP - General Internal Medicine 07/13/22 Meka Yañez MD Specialist Cardiology 04/22/20 Billy Hutson PA Specialist Cardiology 04/22/20 documented as of this encounter
--- OUTSIDE RECORDS SUMMARY | 2025-02-05 11:24 | XMS_ITS | Encounter Summary ---
Author Organization [facility] Address [address] [place] [address] Care Team Providers Care Assembly Machine Feeder Name Role Phone Meka Yañez MD Unavailable [phone] Billy Hutson Unavailable Aziza Prieto MD Primary Care Prov ider Encounter Details Date Type Department Care Team Description 01/25/2023 Orders Only Medical Records [address] [place] [address] Giuseppe Man MD Social History Tobacco Use Types Packs/Day [...] on file documented as of this encounter Procedures Procedure Name Priority Date/Time Associated Diagnosis Comments OUTSIDE COLONOSCOPY Routine 01/13/2023 OUTSIDE PATHOLOGY Routine 01/13/2023 documented in this encounter Results * OUTSIDE COLONOSCOPY (01/13/2023) Giuseppe Man MD RADIOLOGY * OUTSIDE PATHOLOGY (01/13/2023) Giuseppe Man MD OUTSIDE LAB documented in this encounter Visit Diagnoses Not on filedocumented in this encounter Care Teams Assembly Machine Feeder Relationship Specialty Start Date End Date Aziza Prieto MD [address] [place] [address] PCP - General Internal Medicine 07/13/22 Meka Yañez MD Specialist Cardiology 04/22/20 Billy Hutson PA Specialist Cardiology 04/22/20 documented as of this encounter
--- OUTSIDE RECORDS SUMMARY | 2025-02-05 11:24 | XMS_ITS | Encounter Summary ---
Author Organization [facility] Address [address] [place] [address] Care Team Providers Care Geography Teacher Name Role Phone Eddi Arias MD Primary Care Provider Meka Naranjo MD Unavailable [phone] Billy Hutson Unavailable Aziza Prieto MD Primary Care Prov ider Ronnie Jose Primary Care Provider [phone] Aziza Prieto MD Primary Care Prov ider Encounter Details Date Type Department Care Team Description 10/31/2016 Voice Intercept Technician Report Medical Records [address] [place] [address] Avani Ortiz PA-C Social History Tobacco Use [...] on filedocumented in this encounter Care Teams Geography Teacher Relationship Specialty Start Date End Date Eddi Arias MD PCP - General Internal Medicine 02/22/14 09/10/21 Aziza Prieto MD [address] [place] [address] PCP - General Internal Medicine 09/11/21 03/30/22 Ronnie Jose [address] [place] [address] PCP - General Internal Medicine 03/31/22 07/12/22 Aziza Prieto MD [address] [place] [address] PCP - General Internal Medicine 07/13/22 Meka Yañez MD Specialist Cardiology 04/22/20 Billy Hutson PA Specialist Cardiology 04/22/20 documented as of this encounter
--- OUTSIDE RECORDS SUMMARY | 2025-02-05 11:24 | XMS_ITS | Clinical Summary ---
Author Organization [facility] Address [address] [place] [address] Care Team Providers Care Durability Technician Name Role Phone Eddi Arias MD Primary Care Provider [phone] Social History Tobacco Use Types Packs/Day Years Used Date Smoking Tobacco: Never Assessed Sex and Gender Information Value Date Recorded Sex Assigned at Not on file Gender Identity Not on file Sexual Orientation Not on file Job Start Date Occupation Industry Not on file Not on file Not on file Plan of Treatment Health Maintenance Due Date Last Done Comments Hepatitis B Vaccines (1 of 3 - 3-dose series) 1970 Hepatitis C Screening 1970 COVID-19 Vaccine (#1) 03/27/1971 Depression Screening 1982 Preventative Health Evaluation 1988 Cervical Cancer Screening (Pap Smear) 09/25/1991 Colon Cancer Screening (Colonoscopy) 09/25/2015 DTap / Tdap / Td (2 - Td or Tdap) 03/10/2019 03/10/2009 Breast Cancer Screening (Mammogram) 2020 Shingrix-Zoster Vaccine (1 of 2) 2020 Influenza Vaccine (#1) 2024 9, 10/09/2018, 12/19/2016, Additional history exists Pneumococcal Vaccine Aged Out No long er eligible based on patient's age to complete this topic RSV Ped < 20 months Aged Out No longe r eligible based on patient's age to complete this topic Care Teams Durability Technician Relationship Specialty Start Date End Date Eddi Arias MD PCP - General Internal Medicine 12/03/19
--- OUTSIDE RECORDS SUMMARY | 2025-02-05 11:24 | XMS_ITS | Encounter Summary ---
Author Organization [facility] Address [address] [place] [address] Care Team Providers Care Credit Products Officer Name Role Phone Eddi Arias MD Primary Care Provider Meka Naranjo MD Unavailable [phone] Billy Hutson Unavailable Aziza Prieto MD Primary Care Prov ider Ronnie Jose Primary Care Provider [phone] Aziza Prieto MD Primary Care Prov ider Encounter Details Date Type Department Care Team Description 11/26/2019 SCAN Medical Records [address] [place] [address] Abstract, Provider Social History Tobacco Use Types [...] file Not on file Not on file COVID-19 Exposure Response Date Recorded In the last month, have you been in contact with someone who was confirmed or suspected to have Coronavirus / COVID-19? Unable to assess 11/16/2019 7:35 AM EDT documented as of this encounter Plan of Treatment Not on file documented as of this encounter Procedures Procedure Name Priority Date/Time Associated Diagnosis Comments OUTSIDE LAB Routine 11/26/2019 documented in this encounter Results * OUTSIDE LAB (11/26/2019) Provider Abstract LAB documented in this encounter Visit Diagnoses Not on filedocumented in this encounter Care Teams Credit Products Officer Relationship Specialty Start Date End Date Eddi Arias MD PCP - General Internal Medicine 02/22/14 09/10/21 Aziza Prieto MD [address] [place] [address] [phone] PCP - General Internal Medicine 09/11/21 03/30/22 Ronnie Jose [address] [place] [address] PCP - General Internal Medicine 03/31/22 07/12/22 Aziza Prieto MD [address] [place] [address] [phone] PCP - General Internal Medicine 07/13/22 Meka Yañez MD Specialist Cardiology 04/22/20 Billy Hutson PA Specialist Cardiology 04/22/20 documented as of this encounter
--- OUTSIDE RECORDS SUMMARY | 2025-02-05 11:24 | XMS_ITS | Encounter Summary ---
Author Organization [facility] Address [address] [place] [address] Care Team Providers Care Manager Sound Name Role Phone Eddi Arias MD Primary Care Provider Meka Naranjo MD Unavailable [phone] Billy Hutson Unavailable Aziza Prieto MD Primary Care Prov ider Ronnie Jose Primary Care Provider Aziza Prieto MD Primary Care Prov ider Encounter Details Date Type Department Care Team Description 11/04/2015 Hospital Medical Records [address] [place] [address] Venancio Garcia MD Social History Tobacco Use [...] on filedocumented in this encounter Care Teams Manager Sound Relationship Specialty Start Date End Date Eddi Arias MD PCP - General Internal Medicine 02/22/14 09/10/21 Aziza Prieto MD [address] [place] [address] PCP - General Internal Medicine 09/11/21 03/30/22 Ronnie Jose [address] [place] [address] PCP - General Internal Medicine 03/31/22 07/12/22 Aziza Prieto MD [address] [place] [address] PCP - General Internal Medicine 07/13/22 Meka Yañez MD Specialist Cardiology 04/22/20 Billy Hutson PA Specialist Cardiology 04/22/20 documented as of this encounter
--- OUTSIDE RECORDS SUMMARY | 2025-02-05 11:24 | XMS_ITS | Encounter Summary ---
Author Organization [facility] Address [address] [place] [address] Care Team Providers Care Gas Line Installer Name Role Phone Keith Zamora MD Primary Care Provider Eddi Hartman MD Primary Care Provider Meka Naranjo MD Unavailable [phone] Billy Hutson Unavailable Aziza Prieto MD Primary Care Prov ider Ronnie Jose Primary Care Provider [phone] Aziza Prieto MD Primary Care Prov ider Encounter Details Date Type Department Care Team Description 12/09/2009 Clay Grinder Report Medical Records [address] [place] [address] Venancio Garcia MD Social History Tobacco Use [...] on filedocumented in this encounter Care Teams Gas Line Installer Relationship Specialty Start Date End Date Keith Zamora MD PCP - General 02/05/09 02/21/14 Eddi Arias MD PCP - General Internal Medicine 02/22/14 09/10/21 Aziza Prieto MD [address] [place] [address] PCP - General Internal Medicine 09/11/21 03/30/22 Ronnie Jose [address] [place] [address] PCP - General Internal Medicine 03/31/22 07/12/22 Aziza Prieto MD [address] [place] [address] PCP - General Internal Medicine 07/13/22 Meka Yañez MD Specialist Cardiology 04/22/20 Billy Hutson PA Specialist Cardiology 04/22/20 documented as of this encounter
--- OUTSIDE RECORDS SUMMARY | 2025-02-05 11:24 | XMS_ITS | Encounter Summary ---
Author Organization [facility] Address [address] [place] [address] Care Team Providers Care Maintenance Millwright Name Role Phone Eddi Arias MD Primary Care Provider Meka Naranjo MD Unavailable [phone] Billy Hutson Unavailable Aziza Prieto MD Primary Care Prov ider Ronnie Jose Primary Care Provider [phone] Aziza Prieto MD Primary Care Prov ider Encounter Details Date Type Department Care Team Description 08/19/2021 Orders Only Adult Medicine [address] [address] Eddi Arias MD Preoperative examination; Screening for deficiency anemia Social History Tobacco Use Types Packs/Day Years [...] on file documented as of this encounter Results * BASIC METABOLIC PANEL (10/20/2021 3:46 PM EDT) GLUCOSE 85 70 - 100 mg/dL 10/20/2021 7:09 PM EDT [facility] Comment:Reference range appl icable to fasting specimens only Blood Urea Nitrogen 9 5 - 25 mg/dL 10/20/2021 7:09 PM EDT [facility] CREAT 0.70 0.5 - 1.1 mg/dL 10/20/2021 7:09 PM EDT [facility] GLOMERULAR FILTRATION RATE > 60 10/20/2021 7:09 PM EDT [facility] Comment: If patient is -Emirati, multiply result by 1.21 Chronic Kidney Disease: < 60 ml/min/1.73 square meters Kidney Failure: < 15 ml/min/1.73 square meters NA 139 135 - 145 mEq/L 10/20/2021 7:09 PM EDT [facility] K 3.9 3.5 - 5.5 mmol/L 10/20/2021 7:09 PM EDT [facility] CL 103 96 - 110 mmol/L 10/20/2021 7:09 PM EDT [facility] CARBON DIOXIDE (CO2) 28 21 - 32 mmol/L 10/20/2021 7:09 PM EDT [facility] ANION GAP 8 3 - 11 10/20/2021 7:09 PM EDT [facility] CALCIUM 9.6 8.5 - 10.5 mg/dL 10/20/2021 7:09 PM EDT [facility] 10/20/2021 3:46 PM EDT 10/20/2021 3:47 PM EDT Narrative [facility] - 10/20/2021 7:09 PM EDT Release to patient->Immediate Eddi Arias MD [facility] * (ABNORMAL) CBC (AUTO DIFF PLATELET) (10/20/2021 3:46 PM EDT) WHITE BLOOD COUNT 9.5 4.8 - 10.8 x10-3/uL 10/20/2021 6:42 PM EDT [facility] RED BLOOD COUNT 4.3 3.8 - 4.8 x10-6/uL 10/20/2021 6:42 PM EDT [facility] Hemoglobin 12.5 11.5 - 16.0 g/dL 10/20/2021 6:42 PM EDT [facility] Hematocrit 39.2 35 - 47 % 10/20/2021 6:42 PM EDT [facility] MEAN CORPUSCULAR VOLUME 92.0 79 - 98 fL 10/20/2021 6:42 PM EDT [facility] MEAN CORPUSCULAR HEMOGLOBIN 29.3 27 - 32 pg 10/20/2021 6:42 PM EDT [facility] MEAN CORPUSCULAR HGB CONC 31.9(L) 32 - 37 g/dL 10/20/2021 6:42 PM EDT [facility] [place] RED CELL DISTRIBUTION WIDTH 12.0 11 - 15 % 10/20/2021 6:42 PM EDT [facility] PLT COUNT 394 130 - 400 x10-3/uL 10/20/2021 6:42 PM EDT [facility] [place] MEAN PLATELET VOLUME 9.9 7 - 11 fL 10/20/2021 6:42 PM EDT [facility] NRBC % AUTO 0.0 <1 % 10/20/2021 6:42 PM EDT [facility] NEUTROPHILS % 56.0 % 10/20/2021 6:42 PM EDT [facility] LYMPH % 32.7 % 10/20/2021 6:42 PM EDT [facility] MONO % 8.4 % 10/20/2021 6:42 PM EDT [facility] EOS % 2.2 % 10/20/2021 6:42 PM EDT [facility] BASO % 0.5 % 10/20/2021 6:42 PM EDT [facility] IMMATURE GRANULOCYTES % 0.2 % 10/20/2021 6:42 PM EDT [facility] NRBC # AUTO 0.00 <0.1 x10-3/uL 10/20/2021 6:42 PM EDT [facility] NEUT # 5.29 1.5 - 7.0 x10-3/uL 10/20/2021 6:42 PM EDT [facility] LYMPH # 3.09 1 - 5.0 x10-3/uL 10/20/2021 6:42 PM EDT [facility] MONO # 0.79 0.2 - 1.0 x10-3/uL 10/20/2021 6:42 PM EDT [facility] EOS # 0.21 0 - 0.5 x10-3/uL 10/20/2021 6:42 PM EDT [facility] BASO # 0.05 0 - 0.2 x10-3/uL 10/20/2021 6:42 PM EDT [facility] IMMATURE GRANULOCYTES # 0.02 0 - 0.03 x10-3/uL 10/20/2021 6:42 PM EDT [facility] 10/20/2021 3:46 PM EDT 10/20/2021 3:47 PM EDT Narrative [facility] - 10/20/2021 6:42 PM EDT Release to patient->Immediate Eddi Arias MD LAB [facility] documented in this encounter Visit Diagnoses Diagnosis Preoperative examination Preoperative examination, unspecified Screening for deficiency anemia Screening for other and unspecified deficiency anemia Preoperative examination Preoperative examination, unspecified Screening for deficiency anemia Screening for other and unspecified deficiency anemia documented in this encounter Care Teams Maintenance Millwright Relationship Specialty Start Date End Date Eddi Arias MD PCP - General Internal Medicine 02/22/14 09/10/21 Aziza Prieto MD [address] [place] [address] PCP - General Internal Medicine 09/11/21 03/30/22 Ronnie Jose [address] [place] [address] PCP - General Internal Medicine 03/31/22 07/12/22 Aziza Prieto MD [address] [place] [address] PCP - General Internal Medicine 07/13/22 Meka Yañez MD Specialist Cardiology 04/22/20 Billy Hutson PA Specialist Cardiology 04/22/20 documented as of this encounter
--- OUTSIDE RECORDS SUMMARY | 2025-02-05 11:24 | XMS_ITS | Encounter Summary ---
Author Organization [facility] Address [address] [place] [address] Care Team Providers Care Foreign Collection Clerk Name Role Phone Eddi Arias MD Primary Care Provider Meka Naranjo MD Unavailable [phone] Billy Hutson Unavailable Aziza Prieto MD Primary Care Prov ider Ronnie Jose Primary Care Provider [phone] Aziza Prieto MD Primary Care Prov ider Encounter Details Date Type Department Care Team Description 12/14/2016 Pulp Mill Operator Report Medical Records [address] [place] [address] Avani Ortiz PA-C Social History Tobacco Use [...] on filedocumented in this encounter Care Teams Foreign Collection Clerk Relationship Specialty Start Date End Date Eddi Arias MD PCP - General Internal Medicine 02/22/14 09/10/21 Aziza Prieto MD [address] [place] [address] PCP - General Internal Medicine 09/11/21 03/30/22 Ronnie Jose [address] [place] [address] PCP - General Internal Medicine 03/31/22 07/12/22 Aziza Prieto MD [address] [place] [address] PCP - General Internal Medicine 07/13/22 Meka Yañez MD Specialist Cardiology 04/22/20 Billy Hutson PA Specialist Cardiology 04/22/20 documented as of this encounter
--- OUTSIDE RECORDS SUMMARY | 2025-02-05 11:24 | XMS_ITS | Clinical Summary ---
Author Organization [facility] Address [address] [place] [address] Care Team Providers Care Coal Or Ore Controller Name Role Phone Meka Yañez MD Unavailable [phone] Billy Hutson Unavailable Aziza Prieto MD Primary Care Prov ider Allergies Active Allergy Reactions Severity Noted Date Comments Sulfa Drugs Rash/Dermatitis 03/10/2009 Medications Medication Sig Dispensed Refills Start Date End Date Status Multiple Vitamin (MULTIVITAMIN OR) 1 tab daily 0 Active Misc Intestinal Leena Regulat (PROBIOTIC OR) 1 capsule daily 0 Active Svygcwswfpx-Eierqzzjx-S it C-Mn (GLUCOSAMINE CHONDR 500 COMPLEX) CAPS Take by mouth 2 times daily. 0 Active Mesalamine 400 MG CAPSULE DELAYED RELEASE Take 400 mg by mouth 2 times daily. 0 Active pantoprazole (PROTONIX) 20 MG tabletIndications:Nonis chemic cardiomyopathy (HCC) Take 20 mg by mouth daily. 0 Active Loratadine-Pseudoephedr ine (CLARITIN-D 12 HOUR OR)Indications:Nonische brice cardiomyopathy (HCC) Take 1 Tablet by mouth daily. 0 Active metoprolol (TOPROL-XL) 25 MG 24 hr tablet TAKE ONE-HALF TABLET BY MOUTH DAILY 45 Tablet 3 11/11/2023 Active lisinopril (PRINIVIL,ZESTRIL) 5 MG tablet TAKE 1 TABLET BY MOUTH DAILY 90 Tablet 3 12/14/2023 Active Active Problems Problem Noted Date Pure hypercholesterolemia 11/02/2023 Last Assessment & Plan: Would repeat fasting lipid profile this year to reassess. Recommendations can be determined on this. 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 I would like to update her echocardiogram first available. Last year was probably not a good year because she had active GI and orthopedic symptoms. Now that she is back to a place of steady state, we can see where she is at from a cardiac standpoint. If EF is the same or improved, we may consider a cautious reduction in GDMT with close monitoring of cardiac function. It is definitely a calculated risk but not totally unreasonable given her young age and need to function at a highly active job. Would favor cutting out pseudoephedrine portion of Uatjcdux-M-nhtxiqvv with Claritin. Renal cyst, left 01/02/2018 Nephrolithiasis 01/02/2018 Ovarian cyst rupture 07/25/2010 Dyspepsia 07/25/2010 Ulcerative Colitis/ ugi, colonscopy 200903/11/2009 Overview: Presently well-controlled followed regularly by leak detection engineer Allergic rhinitis 03/11/2009 Chronic knee pain 03/11/2009 Low back pain 03/11/2009 GERD (gastroesophageal reflux disease) 0 03/11/2009 Endometriosis 03/11/2009 Resolved Problems Problem Noted Date Resolved Date Mild mitral regurgitation 04/28/20162022 Abnormal echocardiogram 06/05/2015 11/02/19 24 Immunizations Name Administration Dates Next Due COVID-19 (Moderna) 03/02/2021,07/26/2020, 021 Flu Vaccine 3 Yrs> Im 12/23/2018 Influenza (> 6 Months) 10/09/2018,2016,12/06/2015, 012,03/10/2009 Influenza Flu (PT Reported) 12/06/2015, 5 Influenza H1N1 Pandemic Flu Vaccine 03/10/2009 Influenza Vaccine-preservati ve Free-quadrivalent 4 Years 12/28/2020,12/23/2018 PPD-RBMG 02/09/2012 Shingrix (Recombinant zoster vaccine) 12/28/2020 TD (STATE SUPPLIED FOR ADULT S AND CHILDREN) 06/06/2019 Tdap 03/10/2009 Family History Medical History Relation Name Comments Hypertension Brother half brother Diabetes Father Hypertension Father ND Father ulcerative colitis Father Depression Mother Hypertension Mother Thyroid Disorder Mother Thyroid Disorder Sister 4 CA Breast Negative Hx Relation Name Status Comments Brother Alive Father Alive Diabetes, hyper tension, coronary artery disease, ulcer of colitis Mother Alive Depression, hyp othyroid, anxiety Sister 1 Alive hashimotas, Sister 2 Alive Sister 3 Alive Sister 4 Social History Tobacco Use Types Packs/Day Years [...] file Not on file Not on file Last Filed Vital Signs Vital Sign Reading Time Taken Comments Blood Pressure 92/66 11/02/2023 3:42 PM EDT Pulse 78 11/02/2023 3:42 PM EDT Temperature 36 C (96.8 F) 06/29/2023 10:46 AM EDT Respiratory Rate 16 03/31/2022 10:36 AM EST Oxygen Saturation 98% 11/02/2023 3:42 PM EDT Inhaled Oxygen Concentration - - Weight 69.9 kg (154 lb) 11/02/2023 3:42 PM EDT Height 167.6 cm (5' 6 ) 11/02/2023 3:42 PM EDT Body Mass Index 24.86 11/02/2023 3:42 PM EDT Plan of Treatment Health Maintenance Due Date Last Done Comments BASELINE HEALTH EXAM 40-64 02/10/201402/10, 02/09/2012, 10/28/2010, Additional history exists SHINGLES VACCINE (2 of 2) 02/22/2021 12/28/2020 CERVICAL CANCER SCREENING 08/12/20222019, 04/12/2013, 04/12/2013, Additional history exists MAMMOGRAM 06/15/2024 06/16/2023, 06/2022, 06/15/2021, Additional history exists Covid-19 Vaccine ( - 2022-2 4 season) 2024 03/02/2021, 07/26/2020, 06/28/2020 INFLUENZA (#1) 2024 12/28/2020, 12/05, 12/23/2018, Additional history exists CHOLESTEROL SCREENING 04/26/2027 04/26/2022 , 02/11/2012, 10/13/2009 DTAP/TDAP/TD (3 - Td or Tdap) 06/05/2029 06/06/2019, 03/10/2009 COLON CANCER SCREENING 01/13/2033 , 03/14/2018, 12/16/2015, Additional history exists PNEUMOCOCCAL VACCINE FOR HIG H RISK PATIENTS (#1) 09/25/2035 HEPATITIS C SCREENING Completed 03/31/2022 Care Teams Coal Or Ore Controller Relationship Specialty Start Date End Date Aziza Prieto MD [address] [place] [address] PCP - General Internal Medicine 07/13/22 Meka Yañez MD Specialist Cardiology 04/22/20 Billy Hutson PA Specialist Cardiology 04/22/20
--- OUTSIDE RECORDS SUMMARY | 2025-02-05 11:24 | XMS_ITS | Encounter Summary ---
Author Organization [facility] Address [address] [place] [address] Care Team Providers Care Musculoskeletal Physician Name Role Phone Meka Yañez MD Unavailable [phone] Billy Hutson Unavailable Aziza Prieto MD Primary Care Prov ider Reason for Visit * Reason Comments E-prescribe Rx Request Metoprolol succ Encounter Details Date Type Department Care Team Description 06/09/2023 Refill Cardio PVC POC [address] [facility] [address] [place] [address] Meka Yañez MD [address] [place] [address] [id number] E-prescribe Rx Request (Metoprolol succ ) Social History Tobacco Use Types Packs/Day Years [...] on file documented as of this encounter Miscellaneous Notes * Telephone Encounter - Nita Salazar - 06/10/2023 2:00 PM EDT Spoke with the patient and scheduled for 11/02/[address] Yañez. * Telephone Encounter - Dulce Guerra C.M.A. - 06/10/2023 11:35 AM EDT Last Offc visit with Dr Yañez Upcoming appt Return for with me or CELINE in 1year. documented in this encounter Plan of Treatment Not on file documented as of this encounter Visit Diagnoses Not on filedocumented in this encounter Care Teams Musculoskeletal Physician Relationship Specialty Start Date End Date Aziza Prieto MD [address] [place] [address] PCP - General Internal Medicine 07/13/22 Meka Yañez MD Specialist Cardiology 04/22/20 Billy Hutson PA Specialist Cardiology 04/22/20 documented as of this encounter
--- OUTSIDE RECORDS SUMMARY | 2025-02-05 11:24 | XMS_ITS | Encounter Summary ---
Author Organization [facility] Address [address] [place] [address] Care Team Providers Care Drosser Name Role Phone Keith Zamora MD Primary Care Provider Eddi Hartman MD Primary Care Provider Meka aNranjo MD Unavailable [phone] Billy Hutson Unavailable Aziza Prieto MD Primary Care Prov ider Ronnie Jose Primary Care Provider [phone] Aziza Prieto MD Primary Care Prov ider Encounter Details Date Type Department Care Team Description 03/21/2012 Camera Prototyping Engineer Report Medical Records [address] [place] [phone] Venancio Garcia MD Social History Tobacco Use [...] on filedocumented in this encounter Care Teams Drosser Relationship Specialty Start Date End Date Keith Zamora MD PCP - General 02/05/09 02/21/14 Eddi Arias MD PCP - General Internal Medicine 02/22/14 09/10/21 Aziza Prieto MD [address] [place] [address] PCP - General Internal Medicine 09/11/21 03/30/22 Ronnie Jose [address] [place] [address] PCP - General Internal Medicine 03/31/22 07/12/22 Aziza Prieto MD [address] [place] [address] PCP - General Internal Medicine 07/13/22 Meka Yañez MD Specialist Cardiology 04/22/20 Billy Hutson PA Specialist Cardiology 04/22/20 documented as of this encounter
--- OUTSIDE RECORDS SUMMARY | 2025-02-05 11:24 | XMS_ITS | Encounter Summary ---
Author Organization [facility] Address [address] [place] [address] Care Team Providers Care Fireman Name Role Phone Eddi Arias MD Primary Care Provider Meka Naranjo MD Unavailable [phone] Billy Hutson Unavailable Aziza Prieto MD Primary Care Prov ider Ronnie Jose Primary Care Provider [phone] Aziza Prieto MD Primary Care Prov ider Encounter Details Date Type Department Care Team Description 10/24/2019 After School Counselor Report Medical Records [address] [place] [phone] Venancio Garcia MD Social History Tobacco Use [...] on filedocumented in this encounter Care Teams Fireman Relationship Specialty Start Date End Date Eddi Arias MD PCP - General Internal Medicine 02/22/14 09/10/21 Aziza Prieto MD [address] [place] [address] PCP - General Internal Medicine 09/11/21 03/30/22 Ronnie Jose [address] [place] [address] PCP - General Internal Medicine 03/31/22 07/12/22 Aziza Prieto MD [address] [place] [address] PCP - General Internal Medicine 07/13/22 Meka Yañez MD Specialist Cardiology 04/22/20 Billy Hutson PA Specialist Cardiology 04/22/20 documented as of this encounter
--- OUTSIDE RECORDS SUMMARY | 2025-02-05 11:24 | XMS_ITS ---
Author Name [facility] Organization Unknown Care Team Organization Name Specialty Phone Email Start Date End Da te [facility] Aziza Prieto Primary Care 09/09/2022 4 [facility] ROCKY LANG Primary Care [email or web address] 07/12/2022 4 [facility] Ronnie Jose Primary Care 05/12/202210/05 4 [facility] ELAINE Guillaume Primary Care 01/12/202210/05 4
--- OUTSIDE RECORDS SUMMARY | 2025-02-05 11:24 | XMS_ITS | Encounter Summary ---
Author Organization [facility] Address [address] [place] [address] Care Team Providers Care Aerotriangulation Specialist Name Role Phone Keith Zamora MD Primary Care Provider Eddi Hartman MD Primary Care Provider Meka Naranjo MD Unavailable [phone] Billy Hutson Unavailable Aziza Prieto MD Primary Care Prov ider Ronnie Jose Primary Care Provider [phone] Aziza Prieto MD Primary Care Prov ider Encounter Details Date Type Department Care Team Description 02/22/2011 Dispensary Clerk Report Medical Records [address] [place] [phone] Silva Valencia NP Social History Tobacco Use Types Packs/Day Years [...] on filedocumented in this encounter Care Teams Aerotriangulation Specialist Relationship Specialty Start Date End Date Keith Zamora MD PCP - General 02/05/09 02/21/14 Eddi Arias MD PCP - General Internal Medicine 02/22/14 09/10/21 Aziza Prieto MD [address] [place] [address] [phone] PCP - General Internal Medicine 09/11/21 03/30/22 Ronnie Jose [address] [place] [address] [id number] PCP - General Internal Medicine 03/31/22 07/12/22 Aziza Prieto MD [address] [place] [address] [id number] PCP - General Internal Medicine 07/13/22 Meka Yañez MD Specialist Cardiology 04/22/20 Billy Hutson PA Specialist Cardiology 04/22/20 documented as of this encounter
--- OUTSIDE RECORDS SUMMARY | 2025-02-05 11:24 | XMS_ITS | Encounter Summary ---
Author Organization [facility] Address [address] [place] [address] Care Team Providers Care Vegetable Farmworker Name Role Phone Eddi Arias MD Primary Care Provider Meka Naranjo MD Unavailable [phone] Billy Hutson Unavailable Aziza Prieto MD Primary Care Prov ider Ronnie Jose Primary Care Provider [phone] Aziza Prieto MD Primary Care Prov ider Encounter Details Date Type Department Care Team Description 07/26/2019 Assistant Sales Center Manager Report Medical Records [address] [place] [phone] Venancio Garcia MD Social History Tobacco Use [...] on filedocumented in this encounter Care Teams Vegetable Farmworker Relationship Specialty Start Date End Date Eddi Arias MD PCP - General Internal Medicine 02/22/14 09/10/21 Aziza Prieto MD [address] [place] [address] PCP - General Internal Medicine 09/11/21 03/30/22 Ronnie Jose [address] [place] [address] PCP - General Internal Medicine 03/31/22 07/12/22 Aziza Prieto MD [address] [place] [address] PCP - General Internal Medicine 07/13/22 Meak Yañez MD Specialist Cardiology 04/22/20 Billy Hutson PA Specialist Cardiology 04/22/20 documented as of this encounter
--- OUTSIDE RECORDS SUMMARY | 2025-02-05 11:25 | XMS_ITS | Encounter Summary ---
Author Organization [facility] Address [address] [place] [address] Care Team Providers Care Signal Maintainer Helper Name Role Phone Eddi Arias MD Primary Care Provider Meka Naranjo MD Unavailable [phone] Billy Hutson Unavailable Aziza Prieto MD Primary Care Prov ider Ronnie Jose Primary Care Provider [phone] Aziza Prieto MD Primary Care Prov ider Encounter Details Date Type Department Care Team Description 02/16/2018 Pipeline Welder Report Medical Records [address] [place] [phone] Felix Sagastume MD Social History Tobacco Use Types Packs/Day [...] on filedocumented in this encounter Care Teams Signal Maintainer Helper Relationship Specialty Start Date End Date Eddi Arias MD PCP - General Internal Medicine 02/22/14 09/10/21 Aziza Prieto MD [address] [place] [address] PCP - General Internal Medicine 09/11/21 03/30/22 Ronnie Jose [address] [place] [address] PCP - General Internal Medicine 03/31/22 07/12/22 Aziza Prieto MD [address] [place] [address] PCP - General Internal Medicine 07/13/22 Meka Yañez MD Specialist Cardiology 04/22/20 Billy Hutson PA Specialist Cardiology 04/22/20 documented as of this encounter
--- OUTSIDE RECORDS SUMMARY | 2025-02-05 11:25 | XMS_ITS | Encounter Summary ---
Author Organization [facility] Address [address] [place] [address] Care Team Providers Care Fringe Knotter Name Role Phone Keith Zamora MD Primary Care Provider Eddi Hartman MD Primary Care Provider Meka Naranjo MD Unavailable [phone] Billy Hutson Unavailable Aziza Prieto MD Primary Care Prov ider Ronnie Jose Primary Care Provider [phone] Aziza Prieto MD Primary Care Prov ider Encounter Details Date Type Department Care Team Description 04/18/2013 Viscosity Worker Report Medical Records [address] [place] [phone] Venancio Garcia MD Social History Tobacco Use [...] on filedocumented in this encounter Care Teams Fringe Knotter Relationship Specialty Start Date End Date Keith Zamora MD PCP - General 02/05/09 02/21/14 Eddi Arias MD PCP - General Internal Medicine 02/22/14 09/10/21 Aziza Prieto MD [address] [place] [address] PCP - General Internal Medicine 09/11/21 03/30/22 Ronnie Jose [address] [place] [address] PCP - General Internal Medicine 03/31/22 07/12/22 Aziza Prieto MD [address] [place] [address] PCP - General Internal Medicine 07/13/22 Meka Yañez MD Specialist Cardiology 04/22/20 Billy Hutson PA Specialist Cardiology 04/22/20 documented as of this encounter
--- OUTSIDE RECORDS SUMMARY | 2025-02-05 11:25 | XMS_ITS | Encounter Summary ---
Author Organization [facility] Address [address] [place] [address] Care Team Providers Care General Practitioner Name Role Phone Keith Zamora MD Primary Care Provider Eddi Hartman MD Primary Care Provider Meka Naranjo MD Unavailable [phone] Billy Hutson Unavailable Aziza Prieto MD Primary Care Prov ider Ronnie Jose Primary Care Provider [phone] Aziza Prieto MD Primary Care Prov ider Encounter Details Date Type Department Care Team Description 02/06/2013 Barnworker Groom Report Medical Records [address] [place] [address] Venancio Garcia MD Social History Tobacco Use [...] on filedocumented in this encounter Care Teams General Practitioner Relationship Specialty Start Date End Date Keith Zamora MD PCP - General 02/05/09 02/21/14 Eddi Arias MD PCP - General Internal Medicine 02/22/14 09/10/21 Aziza Prieto MD [address] [place] [address] PCP - General Internal Medicine 09/11/21 03/30/22 Ronnie Jose [address] [place] [address] PCP - General Internal Medicine 03/31/22 07/12/22 Aziza Prieto MD [address] [place] [address] PCP - General Internal Medicine 07/13/22 Meka Yañez MD Specialist Cardiology 04/22/20 Billy Hutson PA Specialist Cardiology 04/22/20 documented as of this encounter
--- OUTSIDE RECORDS SUMMARY | 2025-02-05 11:25 | XMS_ITS | Encounter Summary ---
Author Organization [facility] Address [address] [place] [address] Care Team Providers Care Library Technical Assistant Name Role Phone Keith Zamora MD Primary Care Provider Eddi Hartman MD Primary Care Provider Meka Naranjo MD Unavailable [phone] Billy Hutson Unavailable Aziza Prieto MD Primary Care Prov ider Ronnie Jose Primary Care Provider [phone] Aziza Prieto MD Primary Care Prov ider Encounter Details Date Type Department Care Team Description 08/21/2012 Supervisor Bottle Machines Report Medical Records [address] [place] [address] Venancio Garcia MD Social History Tobacco Use [...] on filedocumented in this encounter Care Teams Library Technical Assistant Relationship Specialty Start Date End Date Keith Zamora MD PCP - General 02/05/09 02/21/14 Eddi Arias MD PCP - General Internal Medicine 02/22/14 09/10/21 Aziza Prieto MD [address] [place] [address] PCP - General Internal Medicine 09/11/21 03/30/22 Ronnie Jose [address] [place] [address] PCP - General Internal Medicine 03/31/22 07/12/22 Aziza Prieto MD [address] [place] [address] PCP - General Internal Medicine 07/13/22 Meka Yañez MD Specialist Cardiology 04/22/20 Billy Hutson PA Specialist Cardiology 04/22/20 documented as of this encounter
--- OUTSIDE RECORDS SUMMARY | 2025-02-05 11:25 | XMS_ITS | Encounter Summary ---
Author Organization [facility] Address [address] [place] [address] Care Team Providers Care Stock Preparation Operator Name Role Phone Eddi Arias MD Primary Care Provider Meka Naranjo MD Unavailable [phone] Billy Hutson Unavailable Aziza Prieto MD Primary Care Prov ider Ronnie Jose Primary Care Provider [phone] Aziza Prieto MD Primary Care Prov ider Encounter Details Date Type Department Care Team Description 05/25/2018 Major Assembler Report Medical Records [address] [place] [phone] Venancio Garcia MD Social History Tobacco Use [...] on filedocumented in this encounter Care Teams Stock Preparation Operator Relationship Specialty Start Date End Date Eddi Arias MD PCP - General Internal Medicine 02/22/14 09/10/21 Aziza Prieto MD [address] [place] [address] PCP - General Internal Medicine 09/11/21 03/30/22 Ronnie Jose [address] [place] [address] PCP - General Internal Medicine 03/31/22 07/12/22 Aziza Prieto MD [address] [place] [address] PCP - General Internal Medicine 07/13/22 Meka Yañez MD Specialist Cardiology 04/22/20 Billy Hutson PA Specialist Cardiology 04/22/20 documented as of this encounter
== END 2025-02-05 10:55 | disposition home or self-care (01) ==
LOC: HO.HPHYS 10:06
PROVIDERS: PCP Internal Medicine; Visit Provider Physician Assistant
DX: M54.12 Radiculopathy, cervical region (principal); M25.811 Other specified joint disorders, right shoulder; G56.01 Carpal tunnel syndrome, right upper limb
CPT/HCPCS: 99204